=== PATIENT | male | born 1980 | race Asian ===

== ENCOUNTER 2017-04-12 08:28 | Outpatient (CLI) | payer OTHER ==
--- NOTE | 2017-04-12 15:13 | MRI Report ---
EXAM: LEFT HAND FIFTH AND FOURTH DIGIT MR WITHOUT CONTRAST EXAM DATE: 04/12/2017 09:26 AM. CLINICAL HISTORY: Boutonniere deformity of left fifth digit. COMPARISON: None. TECHNIQUE: Multiplanar, multisequence T1-weighted and fluid-sensitive sequences of the fourth and fif th digits without contrast. Other: None. FINDINGS: Bones: Slight boutonniere deformity of the fifth digit. No acute fracture or subluxations. No marrow edema. No bone lesions. Cartilage: The articular cartilage is unremarkable. Ligaments: Partial tear at the proximal end of the fifth PIP joint radial collateral ligament. The fi fth PIP joint ulnar collateral ligament is intact. The fifth DIP joint collateral ligaments are intac t. The fifth metacarpophalangeal joint collateral ligaments are intact. Tendons: Focal partial-thickness intrasubstance tear or tendinosis at the distal end of the central s lip of the extensor tendon apparatus of the fifth digit. This is at the fifth middle phalanx insertio n site of the central slip. The lateral slips of the extensor tendon apparatus are intact. The termin al tendon of the extensor tendon apparatus is intact. The flexor digitorum tendons of the fifth digit are intact. The extensor and flexor tendons at the fourth digit are intact. The sagittal bands and p ulley system are intact. Musculature: No edema or fatty atrophy. Other: No joint effusions or capsular rupture. Mild subcutaneous edema and swelling at the dorsal asp ect of the fifth PIP joint. IMPRESSION: 1. Partial tear at the proximal end of the fifth PIP joint radial collateral ligament. 2. Focal partial-thickness intrasubstance tear or tendinosis at the distal end of the central slip of the extensor tendon apparatus of the fifth digit. 3. Mild subcutaneous edema and swelling at the dorsal aspect of the fifth PIP joint. 4. 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 5. No acute fracture or subluxation. [facility] MUSCULOSKELETAL RADIOLOGY SECTION Referring Provider Line: [phone] SITE ID: [id number]
== END 2017-04-12 08:29 | disposition home or self-care (01) ==
LOC: DI 08:28
PROVIDERS: ATTEND Physician Assistant
DX: M20.022 Boutonniere deformity of left finger(s) (principal); S63.637A Sprain of interphalangeal joint of left little finger, initial encounter; R60.0 Localized edema